=== PATIENT | male | born 1990 | race Caucasian/White ===

== ENCOUNTER 2018-10-24 01:51 | Emergency (ER) | payer OTHER ==
[~2018-10-24] VITALS: Ht 182.9 cm; Wt 148.9 kg
[~2018-10-24 01:51] MED LIST: ALBU18HF INHALATION; AZIT250T PO; CIPR500T4 PO; HYDR-4011 PO; NAPR-985 PO; PRED20TA PO; TAMS-14 PO
[2018-10-24 01:56] VITALS: Ht 182.9 cm; Wt 148.9 kg
[2018-10-24] MEDS ORDERED: ALBUTEROL 0.083% (NEB) 2.5 MG/3 ML AMP HHN STA (02:38)
[2018-10-24] MEDS ORDERED: METHYLPREDNISOLONE 125 MG INJ IM ONE (03:00)
[2018-10-24] MEDS ORDERED: IPRATROPIUM (NEB) 0.5 MG/2.5 ML AMP HHN ONE (03:00)
[2018-10-24 04:26] VITALS: BP 123/73; PULSE 101; RESP 18
== END 2018-10-24 04:27 | disposition home or self-care (01) ==
LOC: FTE 01:51
DX: J45.901 Unspecified asthma with (acute) exacerbation (principal); J06.9 Acute upper respiratory infection, unspecified; F17.210 Nicotine dependence, cigarettes, uncomplicated
CPT/HCPCS: 94644; 96372; J2930; Z7502; Z7610

== ENCOUNTER 2018-10-28 00:53 | Emergency (ER) | payer OTHER ==
[~2018-10-28] VITALS: Ht 182.9 cm; Wt 152.8 kg
[~2018-10-28 00:53] MED LIST changes: +ALBU2.5V3 NEB
[2018-10-28 01:03] VITALS: BP 115/71; PULSE 76; RESP 17; Ht 182.9 cm; Wt 152.8 kg
[2018-10-28] MEDS ORDERED: KETOROLAC 30 MG INJ IM STA (02:06)
[2018-10-28] MEDS ORDERED: CEFTRIAXONE 1 GM INJ IM ONE (03:30)
[2018-10-28] MEDS ORDERED: AZITHROMYCIN 500 MG TAB PO ONE (03:30)
== END 2018-10-28 03:20 | disposition home or self-care (01) ==
LOC: FTE 00:53
DX: N20.0 Calculus of kidney (principal); N10 Acute pyelonephritis
CPT/HCPCS: 36415; 74176; 80048; 81001; 85025; 87591; 96372; J0696; J1885; Z7502; Z7610